=== PATIENT | male | born 1960 ===

== ENCOUNTER 2018-11-19 09:17 | Outpatient (CLI) | payer MEDICARE ==
[2018-11-19 09:59] LABS: Hematocrit 46.4 % (35.5-45.6); Hemoglobin 16.1 gm/dl (11.8-15.2); Mean Corpuscular HGB Conc 35 % (32-34); Mean Corpuscular Volume 95 fl (84-94); Platelet Count 118 K/mm3 (140-440); Red Blood Count 4.88 M/mm3 (3.65-5.03); Red Cell Distribution Width 15.2 % (13.2-15.2)
[2018-11-19 11:13] LABS: Alanine Aminotransferase 12 units/L (7-56); BUN/Creatinine Ratio 21; Blood Urea Nitrogen 15 mg/dL (9-20); Calcium 8.9 mg/dL (8.4-10.2); Chol/HDL Ratio 2.84 %; HDL Cholesterol 52 mg/dL (40-59); Hemolysis Index 4; LDL Cholesterol,Direct 103 mg/dL (50-130)
[2018-11-22 15:43] LABS: Vitamin D, 25-OH, D2 6 ng/mL
== END 2018-11-19 09:18 | disposition home or self-care (01) ==
LOC: LAB 09:17
PROVIDERS: ATTEND Internal Medicine
DX: E55.9 Vitamin D deficiency, unspecified (principal); Z13.1 Encounter for screening for diabetes mellitus; R79.89 Other specified abnormal findings of blood chemistry
CPT/HCPCS: 36415; 80053; 80061; 82306; 82607; 83036; 85027

== ENCOUNTER 2019-05-20 09:56 | Outpatient (CLI) | payer MEDICARE ==
[2019-05-20 11:16] LABS: Chol/HDL Ratio 2.69 %
== END 2019-05-20 09:57 | disposition home or self-care (01) ==
LOC: LAB 09:56
PROVIDERS: ATTEND Internal Medicine
DX: Z13.220 Encounter for screening for lipoid disorders (principal); Z13.29 Encounter for screening for other suspected endocrine disorder; R73.03 Prediabetes; I10 Essential (primary) hypertension
CPT/HCPCS: 36415; 80061; 83036; 84443